=== PATIENT | male | born 1980 | race African-American/Black ===

== ENCOUNTER 2017-03-16 17:14 | Emergency (ER) | payer OTHER ==
[~2017-03-16] VITALS: Ht 182.9 cm; Wt 95.3 kg
[~2017-03-16 17:14] MED LIST: ACETAMINOPHEN-1 EAC1 PO; FLEXERIL PO; GLAUCOMA DROPS; IBUPROFEN 800800 M1 PO; NORCO 5-325 TA1 EACH PO; PENICILLIN V P500 MG PO; XALATAN2.5 ML OPHTHALMIC
[2017-03-16] MEDS ORDERED: BLEPH-105 ML OPHTHALMIC (19:00)
[2017-03-16] MEDS ORDERED: ALLERGY10 M2 PO (19:01)
== END 2017-03-16 19:18 | disposition home or self-care (01) ==
LOC: ER 17:14
DX: H10.89 Other conjunctivitis (principal); B99.9 Unspecified infectious disease; F17.210 Nicotine dependence, cigarettes, uncomplicated